=== PATIENT | female | born 1980 | race African-American/Black ===

== ENCOUNTER 2024-03-06 17:17 | Emergency (ER) | payer MEDICAID, SELFPAY ==
--- NOTE | ~2024-03-06 | CT_ITS ---
EXAMINATION: CT brain wo con DATE: 03/06/2024 19:11 INDICATION: Headache. TECHNIQUE: Computed tomography (CT) of the head was performed without intravenous contrast. The mA wa s adjusted according to patient size. Iterative reconstruction technique was employed. The dose-lengt h product was 605.33 mGy-cm. COMPARISON: None FINDINGS: There is no intracranial hemorrhage, acute infarction, or abnormal intracranial mass lesion . The ventricles are normal in size. The orbits are normal. The mastoid air cells are normal. The par anasal sinuses are clear. IMPRESSION: 1. Normal brain. Reviewed, dictated and finalized at location A. FILLER IMPRESSION: 1. Normal brain.
[2024-03-06 17:24] VITALS: BP 150/78; PULSE 77; RESP 16; TEMP 36.4; O2SAT 100
--- NOTE | 2024-03-06 18:58 | ED_ITS ---
HPI - Recheck/Abnormal Lab/Rx General Chief Complaint: Recheck/Abnormal Lab/Rx Stated Complaint: HTN, h/a Time Seen by Provider: 03/06/24 19:29 Focused HPI: This is a 43-year-old female who presents to the ED for chief complaint of headache ongoing for the past couple of weeks. She was seen by her doctor for a physical today and told to come to the ER due to high blood pressure. She states that she was not told the number but was told to go straight to the ER. States that he has not been taking anything for her headaches. She does state that she has history of breast cancer and has been in remission. Denies any other medical problems currently. Denies fevers, chills, neck pain, neck stiffness, numbness, weakness, syncope or head injury. does endorse history of migraines in the past GENERAL: Well-appearing, well-nourished, and in no acute distress. HEAD: Normocephalic, atraumatic. CHEST: Clear to auscultation. No respiratory distress. HEART: Regular rate and rhythm. NEURO: Alert and oriented x3. Patient screened in triage and initial orders placed. Additional care and disposition to be based upon diagnostic testing and treatment. Source: patient Mode of arrival: ambulatory Limitations: no limitations Related Data Allergies Allergy/AdvReac Type Severity Reaction Status Date / Time No Known Allergies Allergy Verified 03/06/24 17:19 Review of Systems Review of Systems: All systems as dictated in HPI Exam Narrative: GENERAL: Well-appearing, well-nourished, and in no acute distress. HEAD: Normocephalic, atraumatic. EYES: PERRLA and EOMI. ENT: Nares clear, no rhinorrhea or epistaxis. Mucous membranes moist. Oropharynx without tonsillar hypertrophy exudate or other lesions. NECK: Supple. No adenopathy or masses. CHEST: No respiratory distress. Clear to auscultation. No wheezes rales or rhonchi HEART: Regular rate and rhythm. No murmur heard. Normal peripheral pulses. ABDOMEN: Soft, nontender, nondistended, normal active bowel sounds. MSK: Normal range of motion. No edema. SKIN: Warm, dry, no rash. NEURO: Alert and oriented x4. No focal deficits. PSYCH: Normal mood and affect. Course Vital Signs Vital signs: Vital Signs Temperature 97.6 F 03/06/24 17:24 Pulse Rate 77 03/06/24 17:24 Respiratory Rate 16 03/06/24 17:24 Blood Pressure 150/78 H 03/06/24 17:24 Pulse Oximetry 100 03/06/24 17:24 Oxygen Delivery Room Air 03/06/24 17:24 Temperature 97.6 F 03/06/24 17:24 Pulse Rate 77 03/06/24 17:24 Respiratory Rate 16 03/06/24 17:24 Blood Pressure 150/78 H 03/06/24 17:24 Pulse Oximetry 100 03/06/24 17:24 Oxygen Delivery Room Air 03/06/24 17:24 MDM - Recheck/Abnormal Lab/Rx MDM Narrative Medical decision making narrative: This is a 43-year-old female who presents to the ED after being told by her primary care office to come for elevated blood pressures. Patient does note that she has had headaches but no signs of emergent hypertension. CT brain shows no acute findings.' Offered further workup and headache treatment for the patient here, however she is declining. States that she is feeling well and feels ready to go home. Presentation consistent with headache and asymptomatic hypertension. Patient will be discharged in stable condition. Supportive measures discussed and return precautions given. Patient is understanding and agreeable with plan for discharge with PCP follow-up. Discharge Plan Discharge Clinical Impression: Asymptomatic hypertension Patient Disposition: Home, Self-Care Condition: Stable Instructions: Antibiotic Form Additional Instructions: Your exam and imaging today are reassuring overall. Please make sure they are taking Tylenol 500 mg and ibuprofen 600 mg every 6 hours as needed for headaches. Follow-up with PCP closely regarding blood pressures and headaches. If you have any new or worsening symptoms please return to the ER for further evaluation. Patient Language: Trin[place] Follow-up/Referrals: PHYSICIAN NOT ON STAFF,NONSTAFF [Non-Staff] - Time of Disposition: 19:35
--- NOTE | 2024-03-06 19:44 | PC.NURSE ---
disposition paperwork handed to this rn by memo ann. No last set of vs obtained, and this rn did not observe pt to do assessment.
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
--- OUTSIDE RECORDS SUMMARY | 2024-03-06 19:46 | XMS_ITS | Referral Summary ---
Author Organization [facility] al Address [address] [place] [address] Care Team Providers Care Recruitment Coordinator Name Role Phone No, Physician Primary Care Provider [phone] Taina Cabral MD PhD Unavaila ble Jayla Hernandez MD Unavailable [phone] Encounters Date Type Department Care Team Description 02/08/2024 5:01 PM UPHOLSTERER HELPER - 02/08/2024 9:51 PM [facility] Emergency [facility] Emergency Department [address] [place] [address] Nausea and vomiting, unspecified vomiting type (Primary Dx); Acute cystitis with hematuria Discharge Disposition: Discharge to home or self care 02/07/2024 5:33 PM UPHOLSTERER HELPER - 02/07/2024 7:05 PM [facility] Emergency [facility] Emergency Department [address] [place] [address] Raymon Santana MD Vomiting and diarrhea (Primary Dx) Discharge Disposition: Discharge to home or self care 01/11/2024 2:00 PM [facility] Office Visit [facility] [address] [place] [address] Malignant neoplasm of female breast, unspecified estrogen receptor status, unspecified laterality, unspecified site of breast (HCC) (Primary Dx); Acute bilateral low back pain without sciatica; Zqlrmet-Kemqv-Zfarl disease from Last 3 Months Allergies No known active allergies Medications vitamin ferrous fumarate-folic () 28 mg iron- 800 mcg tabletIndications: Supervision of high-risk , first trimester Take 1 tablet by mouth daily 30 tablet 11 02/13/19 23 Active Additional Information Patient not taking.Reported on 02/28/2022 meloxicam (MOBIC) 15 mg tablet Take 1 tablet (15 mg total) by mouth daily 30 tablet 11/26/19 24 025 Active cyclobenzaprine (FLEXERIL) 10 mg tablet Take 1 tablet (10 mg total) by mouth 2 (two) times a day as needed for muscle spasms 20 tablet 11/26/19 24 Active lidocaine (LIDODERM) 5 % Place 1 patch on the skin daily Remove & discard patch within 12 hours or as directed by MD. 15 patch 11/26/19 24 Active ondansetron (ZOFRAN) 4 mg tablet Take 1 tablet (4 mg total) by mouth every 6 (six) hours 12 tablet 02/06/19 25 Active nystatin, bulk, 100 million unit powder 1 application 2 (two) times a day Apply to skin under left breast 1 each 3 11/07/19 20 025 Discontinu ed(Therapy completed) diphenhydrAMINE-ac etaminophen (TYLENOL PM) 25-500 mg tablet Take 1 tablet by mouth daily 025 Discontinu ed(Therapy completed) baclofen (LIORESAL) 10 mg tablet Take 0.5-1 tablets (5-10 mg total) by mouth 2 (two) times a day Start with 0.5-1 tab qhs x1wk, can increase to 1 tab BID 60 tablet 11 12/03/19 21 025 Discontinu ed(Therapy completed) miSOPROStoL (CYTOTEC) 200 mcg tabletIndications: Spontaneous loss Take 4 tablets (800 mcg total) by mouth as directed for [address] 2 tablets in each cheek (all 4 total) and let dissolve for 30 minutes. After 30m, swallow or spit out the remainder of the undissolved pills. Call the clinic if you have not had any bleeding in 48 hours. 4 tablet 02/21/19 23 025 Discontinu ed(Therapy completed) ondansetron ODT (ZOFRAN-ODT) 4 mg disintegrating tabletIndications: Excessive Vomiting in Take 1 tablet (4 mg total) by mouth every 8 (eight) hours as needed for nausea or vomiting 20 tablet 02/21/19 23 025 Discontinu ed(Therapy completed) acetaminophen (TYLENOL) 500 mg tablet Take 2 tablets (1,000 mg total) by mouth every 6 (six) hours as needed for pain 30 tablet 02/21/19 23 025 Discontinu ed(Therapy completed) nitrofurantoin monohydrate (MACROBID) 100 mg capsule Take 1 capsule (100 mg total) by mouth 2 (two) times a day for 7 days 14 capsule 02/07/19 25 025 Active Problems Problem Noted Date Diagnosed Date Urinary urgency 04/21/2022 Overview (04/21/2022): We discussed that her urge urinary symptoms are likely multifactorial in nature (bladder irritants and large fibroid uterus). Discussed reduction of soda intake to see if symptoms improve. A urine culture is being sent today to rule out a UTI as a possible cause of her symptoms. 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 Her mother and 11yo son also have the condition. She does not have symptoms. She is not sure of the exact mutation or inheritance pattern but may be autosomal dominant for her family. She reports she had nerve conduction test that also supports the diagnosis. She is interested in genetic testing and meeting with genetic counselor. This will be arranged after her next visit where cfDNA and carrier screening will be collected. Neuropathy 12/02/2020 History of breast cancer 09/07/2020 Overview (01/31/2022): ONCOLOGIC HISTORY: - 02/26/2019 L breast biopsy IDC high grade ER/AK/HER2 negative, Ki67 90. LN + BRCA neg - 03/19/2019 R breast biopsy: Benign - 03/17/2019 staging scans: No evidence of metastatic disease - 03/25/2019 initiated neoadjuvant paclitaxel 80 mg/m2, carboplatin AUC 1.5 and pembrolizumab 200 mg Q 3 weeks (with Dr. Salinas) followed by AC Q 3 weeks with pembrolizumab - 10/15/2019 L breast partial mastectomy with sentinel lymph node biopsy: pCR, lymph node clip not located (not retained based on images) - adjuvant XRT She currently has DIANE and has completed treatment. She continues to follow with oncology. She does not require any additional testing for this . Abnormal findings on diagnostic imaging of breas t 09/07/2020 History of partial mastectomy of left breast 03/2020 Gait instability 11/07/2019 Decreased range of motion of left shoulder 11/06 Arthropathy associated with neurological disorde r 04/11/2019 Malignant neoplasm of upper- inner quadrant of left breast in female, estrogen receptor negative 03/11/2019 Cancer Staging:Clinical: cT2, cN2, G3, ER-, AK-, HER2- - Signed by Venessa Salinas MD on 03/11/2019 Pathologic stage from 10/20/2019:No Stage Recommended(ypT0, pN0, cM0, ER-, AK-, HER2-) - Signed by Abigail Cárdenas MD on 11/24/2019 Obesity Overview (01/31/2022): BMI: 30.4 Counseling Discussed with patient that obesity in is associated with increased risks. Women with obesity are at increased risks of spontaneous , stillbirth, macrosomia and congenital anomalies. During the antepartum period they are at increased risk of cardiac dysfunction, proteinuria, sleep apnea, GDM, and preeclampsia. During labor, women with obesity are at a higher risk for delivery, failed trial of labor, endometritis, wound complications, and venous thrombosis. Discussed with patient the recommended weight gain in , and with a BMI of 30 or greater we recommend a weight gain of 11-20lb Lastly discussed management. Would recommend early glucose screening, specialized anatomy ultrasound with serial growth assessment, and testing. Plan [] Early GTT [] Specialized anatomy ultrasound [] Serial growth ultrasounds q4 weeks starting at 24 weeks [] Anesthesia consult in third trimester Fibroid Overview (04/21/2022): -patient reports a history of heavy menses - Discussed with patient that uterine fibroids (also known as myomas or leiomyomas) are caused by benign proliferation of myometrium - ultrasound during recent with large posterior lower uterine segment submucosal uterine fibroid measuring a mean of 11.1 cm (115 mm x 119 mm x 99 mm. Mean 111.0 mm) Uterus and adnexa normal - we discussed that her heavy menses may be related to her fibroid uterus. Additionally may be contributing to her urinary symptoms. - we discussed management options for fibroids including MMY vs hysterectomy. She strongly desires to retain her uterus and would like to proceed forward with MMY. Counseled regarding open vs minimally invasive approach. She would like to have a consultation with [facility] to determine if this procedure could be performed minimally invasive. - Message sent for referral. [facility] requesting MRI prior to seeing the patient. Order placed for MRI and patient given instructions to call and schedule. Supervision of high-risk , first miguel rodriguez Overview (01/31/2022): 1st Trimester: [] Dating Criteria: L=1 [] Labs: Rh *, Ab *, CBC *, Rubella *, VZV *, HIV *, RPR *, HepBSAg *, Hep C Ab * (ordered 01/31) [] GC/CT/Trich: ordered 01/31 [] UCx: [] vitamins: taking [] Genetic Screening: desires at 12 wk [] CF/SMA carrier screening: desires at 12 wk [] Hgb electrophoresis: [] Pap: collected 01/31 [] EPDS: PNBHS referral (if indicated) [] ASA at 12 weeks [] DM screening: HgbA1c * (<5.7: no further test until 2T screen, 5.7-6.5: obtain 2h GTT, >6.5: refer to CDP) [] Feeding Preferences Survey: benefits of discussed with patient and partner 2nd Trimester: [] Anatomy ultrasound: [] CBC: [] 1hr GTT (24-28wks): [] Flu Shot (Sep-Jan): [] Tdap (27-36wks): [] Rhogam (if Rh neg): [] Childbirth classes discussed [] education (colostrum, expected breast changes, plan for RTW) and breast pump ordered [] 2nd trimester education packet 3rd Trimester: [] CBC/HIV/RPR/T&S: [] GBS: [] GC/CT/Trich (if indicated): [] Final discussion (S2S, Baby Friendly, LC Support, PP experience) [] 3rd trimester education packet Counseling [] Method of delivery: [] Bottle of CHG 4% and hand out provided @ 36wks (if planned) [] Timing of delivery: [] MOC: [] MOF: [] COVID-19 vaccine counseling [] education: completed in all 3 trimesters [] Valve Seater Operator: [] Car seat discussed [] PP depression counseling Resolved Problems Problem Noted Date Diagnosed Date Resolved Date with inconclusive viability 01/25/2022 01/31/2022 Overview (01/25/2022): Telephone Number Jeffery Calvo [phone] (home) Home [] PUL Card Given Working Diagnosis: IUP vs SAB Date presented: 01/25/22 Brief HPI: 41 y.o. at approximately 7w2d (LMP= ) presents to ED 01/16 with bleeding, BSUS 01/16 with GS/YS. Ultrasound: BSUS 01/16 with GS/YS. Formal US 01/25 with no evidence of IUP but technically challenging 2/2 large posterior fibroid. 01/25 bHCG 52674, discussed repeating bHCG in 48 hrs, however patient declined due to job. She has an appointment scheduled for 01/31. Precautions given. Rh Status: A Positive [] Rhogam Given Beta Trend: Lab Results Component Value Date HCG 72,919.0 (H) 01/25/2022 HCG 29,986.0 (H) 01/16/2022 HCG <5.0 08/15/2020 HCG 1.2 11/24/2019 PLAN Next beta due: 01/25 if downtrending, c/w SAB and to discuss next steps with patient. Contraception: NA [] Signed out with attending and audrey to remove from beta book. Attending Name: Breast pain 12/02/2020 01/31/2022 Immunizations Name Administration Dates Next Due Influenza, Trivalent, IM (MDV) 12/26/2016 Tdap 10/28/2021,03/10/2011 Social History Tobacco Use Types Packs/Day Years Used Date Smoking Tobacco: Never Smokeless Tobacco: Never Tobacco Cessation:Counseling Given: Not Answered Alcohol Use Standard Drinks/Week Comments No 0 (1 standard drink = 0.6 oz pur e alcohol) AUDIT-C Answer Date Recorded Q1: How often do you have a drink containing alc ohol? Never 12/02/2020 Average Number of Drinks Not on file 021 Frequency of Binge Drinking Not on file 11/06 Hunger Vital Sign Answer Date Recorded Within the past 12 months, y ou worried that your food would run out before you got the money to buy more. Never true 04/22/19 23 Within the past 12 months, t he food you bought just didn't last and you didn't have money to get more. Never true 04/21/2022 Personal Safety Answer Date Recorded Have you ever been in or are you currently in a harmful physical or emotional relationship or is someone making you feel afraid or unsafe? Denies 02/08/2024 Comments No Sex and Gender Information Value Date Recorded Sex Assigned at Not on file Legal Sex Female 11:41 AM UPHOLSTERER HELPER Gender Identity Not on file Sexual Orientation Not on file Last Filed Vital Signs Vital Sign Reading Time Taken Comments Blood Pressure 144/91 02/08/2024 9:00 PM UPHOLSTERER HELPER Pulse 60 02/08/2024 9:00 PM UPHOLSTERER HELPER Temperature 36.9 ??C (98.4 ??F) 02/08/2024 2:39 PM CS T Respiratory Rate 18 02/08/2024 2:39 PM UPHOLSTERER HELPER Oxygen Saturation 100% 02/08/2024 9:00 PM UPHOLSTERER HELPER Inhaled Oxygen Concentration - - Weight 83.9 kg (185 lb) 02/08/2024 2:39 PM UPHOLSTERER HELPER Height 172.7 cm (5' 8 ) 02/08/2024 2:39 PM UPHOLSTERER HELPER Body Mass Index 28.13 02/08/2024 2:39 PM UPHOLSTERER HELPER Plan of Treatment Not on file Goals Goal Patient Goal Type Associated Problems Recent Progress Patient-Stated? Author CCM Chronic Pain Care Plan Chronic Care Management No change(12/02 10:04 AM CDT) No Mercedez Livingston, RN Note: Problem: Chronic Pain Goals: 1. Minimize further functional decline 2. Maximize quality of life 3. Control pain Strategies: - Activity/exercise program recommendation - Conservative stepwise pain medicine strategy with multi-disciplinary approach - Recommend healthy lifestyle strategies and compensatory methods as needed Medical Devices Explanted Type Area Integration Developer Device Identifier Shelf Expiration Date Model / Serial / Lot [employer] [id number] Powerport Clearvue Airguard 8fr 1 Lumen Lightweight Intermediate Latex Free - [id number] Implanted:Qty: 1 on 03/12/2019 by Taina Cabral MD PhD at [facility] Explanted:Qty: 1 on 12/17/2019 at [facility] Right: Chest [employer] 05/05/2020 [id number] / / [id number] Procedures Procedure Name Priority Date/Time Associated Diagnosis Comments POCT HCG, URINE Routine 02/08/2024 8:46 PM UPHOLSTERER HELPER URINALYSIS, MICROSCOPIC ONLY STAT 02/08/2024 7:38 PM UPHOLSTERER HELPER URINE CULTURE STAT 02/08/2024 7:38 PM UPHOLSTERER HELPER URINALYSIS AND REFLEX TO MICROSCOPIC AND CULTURE STAT 02/08/2024 7:38 PM UPHOLSTERER HELPER EGFR STAT 02/08/2024 6:00 PM UPHOLSTERER HELPER DIFFERENTIAL AUTO STAT 02/08/2024 6:0 0 PM UPHOLSTERER HELPER LIPASE STAT 02/08/2024 6:00 PM UPHOLSTERER HELPER COMPREHENSIVE METABOLIC PANEL STAT 02/08/2024 6:00 PM UPHOLSTERER HELPER CBC WITH AUTO DIFFERENTIAL STAT 02/08/2024 6:00 PM UPHOLSTERER HELPER INFLUENZA A/B, RSV, AND COVID-19 PCR Routine 02/08/2024 2:47 PM UPHOLSTERER HELPER ECG 12-LEAD STAT 02/07/2024 3:01 PM UPHOLSTERER HELPER EGFR STAT 02/07/2024 2:52 PM UPHOLSTERER HELPER DIFFERENTIAL AUTO STAT 02/07/2024 2:5 2 PM UPHOLSTERER HELPER LIPASE STAT 02/07/2024 2:52 PM UPHOLSTERER HELPER COMPREHENSIVE METABOLIC PANEL STAT 02/07/2024 2:52 PM UPHOLSTERER HELPER CBC WITH AUTO DIFFERENTIAL STAT 02/07/2024 2:52 PM UPHOLSTERER HELPER HEPATITIS C ANTIBODY Routine 01/31/2022 12:56 PM UPHOLSTERER HELPER Supervision of high-risk , first trimester PAP AND HIGH RISK HPV, REFLEX TO GENOTYPING Routine 01/31/2022 12:01 PM UPHOLSTERER HELPER Supervision of high-risk , first trimester DIAGNOSTIC MAMMOGRAM BILATERAL W JIM Schedule Routine, Read Routine (OP Routine) 03/02/2020 2:31 PM UPHOLSTERER HELPER Malignant neoplasm of upper-inner quadrant of left breast in female, estrogen receptor negative (CMS/HCC) from Last 3 Months or Most Recently Relevant to Health Maintenance Results * POCT hCG, urine (02/08/2024 8:46 PM UPHOLSTERER HELPER) Pathologist [facility] HCG, ur, POC Negative Negative Lot Number [id number] QC Backgroud Clear Acceptable QC Control Line Acceptable Urine 02/08/2024 8:46 PM UPHOLSTERER HELPER Meaghan Michel NP POINT OF CARE TEST GIANCARLO MILLER Final Result * (ABNORMAL) Urinalysis reflex to microscopic and culture Urine (02/08/2024 7:38 PM UPHOLSTERER HELPER) Color, ur Yellow Yellow Comment:[facility] : [facility] [address], [place] [address] Clarity, ur Clear Clear [place]ON Comment:Testing performed by : [facility], [place] [address] Specific gravity, ur 1.028 1.003 - 1.030 ST[place]ON Comment:Testing performed by : [facility], [place] [address] pH, urine 7.0 STANTON Comment: Interpretive Data ? Urine pH is affected by diet, medications, systemic acid-base disturbances, and renal tubular function. ??pH may affect urinary stone formation. ??For example, urine pH below 6.0 may help reduce the tendency for calcium phosphate stones and pH greater than 6.0 may reduce the tendency for uric acid stone formation. Source: [facility] [employer] Current Interpretive Data was last revised on 2017 Testing performed by: [facility], [place] [address] Protein, ur ql Trace Negative CERNER Comment:Testing performed by : [facility], [place] [address] Glucose, ur ql Negative Negative CERNER Comment:Testing performed by : [facility], [place] [address] Ketones, ur 2+(A) Negative CERNER Comment:Testing performed by : [facility], [place] [address] Bilirubin, ur Negative Negative CERNER Comment:Testing performed by : [facility] [address] [address] Blood, ur 2+(A) Negative CERNER Comment:Testing performed by : [facility], [place] [address] Urobilinogen, ur <2.0 <2.0 mg/dL ST[place]ON Comment:Testing performed by : [facility], [place] [address] Nitrite, ur Negative Negative CERNER Comment:Testing performed by : [facility], [place] [address] Leukocyte esterase, ur 2+(A) Negative CERNER Comment:Testing performed by : [facility] [address], [place] [address] UA reflex comment Reflex to microscopic UA will be performed. STANTON Comment:Testing performed by : [facility] [address], [place] [address] Urine 02/08/2024 7:38 PM UPHOLSTERER HELPER 02/08/2024 7:54 PM UPHOLSTERER HELPER Meaghan Michel [facility] MICROBIOLOGY - GENE RAL ORDERABLES Final Result STANTON [address] Department [place] [address] * (ABNORMAL) Urinalysis, microscopic only (02/08/2024 7:38 PM UPHOLSTERER HELPER) WBC, ur 11-20(A) 0 - 5 /HPF Comment:Testing performed by : [facility], [address], [place] [address] RBC, ur 21-50(A) 0 - 2 /HPF ST[place]ON Comment:Testing performed by : [facility], [address], [place] [address] Epithelial cells, squamous, ur 1-5 0 - 5 /HPF ST[place]ON Comment:Testing performed by : [facility], [address], [place] [address] Mucous, ur Present(A) STANTON Comment:Testing performed by : [facility], [address], [place] [address] Culture Reflex Comment Reflex to urine culture will be performed. STANTON Comment:Testing performed by : [facility], [address], [place], [place] [address] Urine 02/08/2024 7:38 PM UPHOLSTERER HELPER 02/08/2024 7:54 PM UPHOLSTERER HELPER Meaghan Michel [facility] URINE ORDERABLES nal Result ST[place] URBAN [address] Department [place] [address] * Urine culture Urine (02/08/2024 7:38 PM UPHOLSTERER HELPER) Report Final Report: Less than 100,000 colonies/mL (clinically insignificant growth based on current clinical standards) Comment:Testing performed by : [facility], [address] [place]., [address] Organism (CLINICALLY INSIGNIFICANT GROWTH ST[place]ON Urine 02/08/2024 7:38 PM UPHOLSTERER HELPER 02/08/2024 11:56 PM UPHOLSTERER HELPER Narrative STANTON - 02/10/2024 8:07 AM UPHOLSTERER HELPER Urine culture reflexed based upon urinalysis results. Testing performed by [facility] ([phone]) [place] [facility] MICROBIOLOGY - GENE RAL ORDERABLES Final Result Performing Organization Address [facility] Co de Phone Number ST[place]ON URBAN [address] Department [place] [address] * eGFR (02/08/2024 6:00 PM UPHOLSTERER HELPER) eGFR >90 >=60 mL/min/1. 73 m2 Comment: Interpretive Data Reference Interval Normal ?>/= 90 mL/min/1.73m2 Mildly decreased* ? 60 - 89 mL/min/1.73m2 Mildly to moderately decreased ?45 - 59 mL/min/1.73m2 Moderately to severely decreased ??30 - 44 mL/min/1.73m2 Severely decreased ?15 - 29 mL/min/1.73m2 Kidney Failure ?< 15 ??mL/min/1.73m2 *Relative to young adult level Estimated glomerular filtration rate is determined by the 2020 CKD-EPI equation recommended by the National Kidney Foundation (A Unifying Approach to GFR Estimation: Recommendations of the NKF-ASK Task Force on Reassessing the Inclusion of Race in Diagnosing Kidney Disease, JASN 2020). The CKD-EPI equation should not be used for patients with unstable renal function and has not been validated in children and those over 70. Current interpretive data was last reviewed 2020. Testing performed by: [facility], [address], [place] [address] Blood 02/08/2024 6:00 PM UPHOLSTERER HELPER 02/08/2024 6:12 PM UPHOLSTERER HELPER Meaghan [place] [facility] BLOOD ORDERABLES Fi nal Result Performing Organization Address [facility] Co de Phone Number ST[place]ON URBAN [address] [address] Department of Laboratories [place] [phone] * Differential, auto (02/08/2024 6:00 PM UPHOLSTERER HELPER) Neutrophil abs 2.0 1.5 - 6.5 K/cumm Comment:Testing performed by : [facility], [facility] [place] [address] Imm gran abs 0.0 0.0 - 0.1 K/cumm CERNER CH Comment:Testing performed by : [address] [place] [address] Lymphocyte abs 1.1 0.8 - 3.3 K/cumm CERNER CH Comment:Testing performed by : [address] [place] [address] Monocyte abs 0.6 0.2 - 0.8 K/cumm CERNER CH Comment:Testing performed by : [address] [place] [address] Eosinophil abs 0.0 0.0 - 0.5 K/cumm CERNER CH Comment:Testing performed by : [address] [place] [address] Basophil abs 0.0 0.0 - 0.1 K/cumm CERNER CH Comment:Testing performed by : [address] [place] [address] Neutrophil pct 53.1 % CERNER CH Comment: Interpretive Data Percent cell count reference ranges are not reported, since discordance with absolute values may lead to misinterpretation of CBC data. Current Interpretive Data was last revised on 2017. Testing performed by: [address] [place] [address] Imm gran pct 0.3 % CERNER CH Comment: Interpretive Data Percent cell count reference ranges are not reported, since discordance with absolute values may lead to misinterpretation of CBC data. Current Interpretive Data was last revised on 2017. Testing performed by: [address] [place] [address] Lymphocyte pct 29.7 % CERNER CH Comment: Interpretive Data Percent cell count reference ranges are not reported, since discordance with absolute values may lead to misinterpretation of CBC data. Current Interpretive Data was last revised on 2017. Testing performed by: [address] [place] [address] Monocyte pct 15.8 % STANTON Comment: Interpretive Data Percent cell count reference ranges are not reported, since discordance with absolute values may lead to misinterpretation of CBC data. Current Interpretive Data was last revised on 2017. Testing performed by: [facility] [address], [place] [address] Eosinophil pct 0.8 % STANTON URBAN Comment: Interpretive Data Percent cell count reference ranges are not reported, since discordance with absolute values may lead to misinterpretation of CBC data. Current Interpretive Data was last revised on 2017. Testing performed by: [facility] [address], [place] [address] Basophil pct 0.3 % STANTON Comment: Interpretive Data Percent cell count reference ranges are not reported, since discordance with absolute values may lead to misinterpretation of CBC data. Current Interpretive Data was last revised on 2017. Testing performed by: [facility] [address], [place] [address] Blood 02/08/2024 6:00 PM UPHOLSTERER HELPER 02/08/2024 6:12 PM UPHOLSTERER HELPER Meaghan Michel [facility] BLOOD ORDERABLES Fi nal Result ST[place]ON [address] Department [place] [address] * (ABNORMAL) CBC with auto differential (02/08/2024 6:00 PM UPHOLSTERER HELPER) WBC 3.7(L) 3.8 - 9.9 K/cumm Comment:[facility] by : [facility] [address], [place] [address] Hgb 13.0 11.9 - 15.5 g/dL [facility] Comment:Testing performed by : [facility] [address], [place] [address] Hct 38.9 35.6 - 45.5 % [facility] Comment:Testing performed by : [facility], [place] [address] Plt 280 150 - 400 K/cumm [facility] Comment:Testing performed by : [facility], [place] [address] MPV 9.0(L) 9.1 - 12.3 fL [facility] Comment:Testing performed by : [facility] [place] [address] RBC 4.76 3.90 - 5.20 M/cumm [facility] CH Comment:Testing performed by : [facility], [facility] [place] [address] MCV 81.7 81.3 - 96.4 fL [facility] CH Comment:Testing performed by : [facility], [facility] [place], [place] [address] MCH 27.3 27.1 - 33.3 pg [facility]ER CH Comment:Testing performed by : [facility], [facility] [place] [address] MCHC 33.4 32.3 - 35.7 g/dL [facility] CH Comment:Testing performed by : [facility], [facility] [place], [place] [address] RDW CV 14.2 11.1 - 14.9 % [facility] CH Comment:Testing performed by : [facility] [place], [place] [address] RDW SD 41.8 35.7 - 48.1 fL [facility] CH Comment:Testing performed by : [facility], [facility] [place], [place] [address] NRBC abs 0.00 0.00 - 0.01 K/cumm [facility]ER Comment:Testing performed by : [facility], [facility] [place], [place] [address] Blood 02/08/2024 6:00 PM UPHOLSTERER HELPER 02/08/2024 6:12 PM UPHOLSTERER HELPER Meaghan Michel SHIPPING WEIGHER LAB BLOOD ORDERABLES nal Result [facility] [address] Department [place] [address] * Lipase (02/08/2024 6:00 PM UPHOLSTERER HELPER) Lipase 25 10 - 99 Units/L Comment:Testing performed by : [facility], [facility] [place] [address] Blood 02/08/2024 6:00 PM UPHOLSTERER HELPER 02/08/2024 6:12 PM UPHOLSTERER HELPER Meaghan Michel SHIPPING WEIGHER LAB BLOOD ORDERABLES Fi nal Result [facility] [address] Department [place] [address] * (ABNORMAL) Comprehensive metabolic panel (02/08/2024 6:00 PM UPHOLSTERER HELPER) Sodium 134(L) 135 - 145 mmol/L Comment:Testing performed by : [facility], [place] [address] Potassium, pl 3.9 3.3 - 4.9 mmol/L [facility] Comment:[facility] performed by : [facility], [place] [address] Chloride 99 97 - 110 mmol/L [facility] Comment:Testing performed by : [facility], [place] [address] CO2 22 22 - 32 mmol/L [facility] Comment:Testing performed by : [facility], [place] [address] Anion gap 13 2 - 15 mmol/L [facility] Comment:Testing performed by : [facility] [address], [place] [address] BUN 9 6 - 25 mg/dL [facility] Comment:Testing performed by : [facility] [address], [place] [address] Creatinine 0.42(L) 0.60 - 1.10 mg/dL [facility] Comment:Testing performed by : [facility] [address], [place] [address] Glucose 95 70 - 199 mg/dL [facility] Comment: Interpretive Data Fasting glucose >/= 126 mg/dl is diagnostic for diabetes. ?? Fasting is defined as no caloric intake for at least 8 hours. Fasting glucose between 100 mg/dl to 125 mg/dl is diagnostic of prediabetes. In a patient with classic symptoms of hyperglycemia or hyperglycemic crisis, a random glucose >/= 200 mg/dl is diagnostic for diabetes. In the absence of unequivocal hyperglycemia, results should be confirmed by repeat testing. The classification and Diagnosis of Diabetes Diabetes Care 2021; 46: S19-S40. Current interpretive data was last revised 2022. Testing performed by: [facility], [place] [address] Calcium 9.2 8.5 - 10.3 mg/dL [facility] Comment:Testing performed by : [facility] [address], [place] [address] Bilirubin, total 0.4 0.1 - 1.2 mg/dL [facility] CH Comment:Testing performed by : [facility] [address], [place] [address] Protein, pl 7.9 6.5 - 8.5 g/dL [facility] Comment:Testing performed by : [facility] [address], [place] [address] Albumin 4.2 3.5 - 5.0 g/dL [facility] CH Comment:Testing performed by : [facility], [place] [address] Alk phos 57 40 - 130 Units/L [facility] CH Comment:Testing performed by : [facility], [place] [address] ALT 9 7 - 45 Units/L [facility] CH Comment:Testing performed by : [facility], [place] [address] AST 14 10 - 45 Units/L [facility] Comment:Testing performed by : [facility], [place] [address] Blood 02/08/2024 6:00 PM UPHOLSTERER HELPER 02/08/2024 6:12 PM UPHOLSTERER HELPER Meaghan Michel SHIPPING WEIGHER LAB BLOOD ORDERABLES Fi nal Result [facility] [address] Department [place] [address] * Influenza A/B, RSV, and COVID-19 PCR Nasopharyngeal (02/08/2024 2:47 PM UPHOLSTERER HELPER) COVID-19 RNA Negative Negative Comment:Testing performed by : [facility], [place] [address] Influenza A RNA Negative Negative [facility] Comment:Testing performed by : [facility], [place] [address] Influenza B RNA Negative Negative [facility] Comment:Testing performed by : [facility], [place] [address] RSV RNA Negative Negative [facility] Comment: Interpretive data: Testing performed by [facility]. This test is performed using the Istpika Xpert Xpress CoV-2/Flu/RSV plus assay. This is a multiplex, real- time reverse transcriptase PCR assay intended for the qualitative detection of nucleic acid from SARS-CoV-2, influenza A, influenza B, and respiratory syncytial virus. This assay has been cleared by the [place] Food and Drug administration. The performance characteristics have been verified by the [facility]. ??Results must be considered in the clinical context, and a negative result does not rule out infection. Interpretive Data last revised 2023 Testing performed by: [facility], [address], [place] [address] Nasopharyngeal 02/08/2024 2: 47 PM UPHOLSTERER HELPER 02/08/2024 2:50 PM UPHOLSTERER HELPER Narrative [facility] - 02/08/2024 3:27 PM UPHOLSTERER HELPER Is the Patient experiencing symptoms consistent with COVID?->Yes Christina Redd MD LAB MICROBIOLOGY - GEN ERAL ORDERABLES Final Result [facility] [address] Department [place] [address] * ECG 12-LEAD (02/07/2024 3:01 PM UPHOLSTERER HELPER) Narrative [facility] - 02/07/2024 3:01 PM UPHOLSTERER HELPER Abdi Reed MD ? 02/07/2024 ??3:01 PM ECG 12 lead Date/Time: 02/07/2024 3:01 PM Performed by: Abdi Reed MD Authorized by: Brian Brasher MD ?? Comments: ?? Sinus bradycardia, rate 59, borderline left axis deviation. ??AK, QRS, QTC intervals are not prolonged. ??No acute T-wave or ST changes when compared to prior EKG from 02/26/2019 Procedure Note Abdi Reed MD - 02/07/2024 3:01 PM CST Procedure ECG 12 lead Date/Time: 02/07/2024 3:01 PM Performed by: Abdi Reed MD Authorized by: Brian Brasher MD Comments: Sinus bradycardia, rate 59, borderline left axis deviation. AK, QRS,QTC intervals are not prolonged. No acute T-wave or ST changes whencompared to prior EKG from 02/26/2019 Abdi Reed MD 02/07/24 1501 us Raymon Santana MD ECG ORDERABLES Final Res ult Performing Organization Address [facility] Co de Phone Number MUSE [facility] * eGFR (02/07/2024 2:52 PM UPHOLSTERER HELPER) Pathologist [facility] eGFR >90 >=60 mL/min/1. 73 m2 Comment: Interpretive Data Reference Interval Normal ?>/= 90 mL/min/1.73m2 Mildly decreased* ? 60 - 89 mL/min/1.73m2 Mildly to moderately decreased ?45 - 59 mL/min/1.73m2 Moderately to severely decreased ??30 - 44 mL/min/1.73m2 Severely decreased ?15 - 29 mL/min/1.73m2 Kidney Failure ?< 15 ??mL/min/1.73m2 *Relative to young adult level Estimated glomerular filtration rate is determined by the 2020 CKD-EPI equation recommended by the National Kidney Foundation (A Unifying Approach to GFR Estimation: Recommendations of the NKF-ASK Task Force on Reassessing the Inclusion of Race in Diagnosing Kidney Disease, JASN 2020). The CKD-EPI equation should not be used for patients with unstable renal function and has not been validated in children and those over 70. Current interpretive data was last reviewed 2020. Blood 02/07/2024 2:52 PM UPHOLSTERER HELPER 02/07/2024 3:22 PM UPHOLSTERER HELPER us Yumiko Brasher MD LAB BLOOD ORDERABLES Final Result [facility] Department [place] [address] * Differential, auto (02/07/2024 2:52 PM UPHOLSTERER HELPER) Neutrophil abs 1.8 1.5 - 6.5 K/cumm Imm gran abs 0.0 0.0 - 0.1 K/cumm [facility] Lymphocyte abs 1.0 0.8 - 3.3 K/cumm [facility] Monocyte abs 0.5 0.2 - 0.8 K/cumm C[facility] Eosinophil abs 0.0 0.0 - 0.5 K/cumm [facility] Basophil abs 0.0 0.0 - 0.1 K/cumm [facility] Neutrophil pct 54.3 % [facility] Comment: Interpretive Data Percent cell count reference ranges are not reported, since discordance with absolute values may lead to misinterpretation of CBC data. Current Interpretive Data was last revised on 2017. Imm gran pct 0.6 % [facility] Comment: Interpretive Data Percent cell count reference ranges are not reported, since discordance with absolute values may lead to misinterpretation of CBC data. Current Interpretive Data was last revised on 2017. Lymphocyte pct 29.0 % [facility] Comment: Interpretive Data Percent cell count reference ranges are not reported, since discordance with absolute values may lead to misinterpretation of CBC data. Current Interpretive Data was last revised on 2017. Monocyte pct 14.6 % [facility] Comment: Interpretive Data Percent cell count reference ranges are not reported, since discordance with absolute values may lead to misinterpretation of CBC data. Current Interpretive Data was last revised on 2017. Eosinophil pct 1.2 % [facility] Comment: Interpretive Data Percent cell count reference ranges are not reported, since discordance with absolute values may lead to misinterpretation of CBC data. Current Interpretive Data was last revised on 2017. Basophil pct 0.3 % [facility] Comment: Interpretive Data Percent cell count reference ranges are not reported, since discordance with absolute values may lead to misinterpretation of CBC data. Current Interpretive Data was last revised on 2017. Blood 02/07/2024 2:52 PM UPHOLSTERER HELPER 02/07/2024 3:21 PM UPHOLSTERER HELPER Yumiko Brasher MD LAB BLOOD ORDERABLES Final Result Performing Organization Address [facility] Co de Phone Number [facility] Department [place] [address] * (ABNORMAL) CBC with auto differential (02/07/2024 2:52 PM UPHOLSTERER HELPER) Pathologist [facility] WBC 3.3(L) 3.8 - 9.9 K/cumm Hgb 13.2 11.9 - 15.5 g/dL [facility] Hct 40.2 35.6 - 45.5 % [facility] Plt 283 150 - 400 K/cumm [facility] MPV 9.6 9.1 - 12.3 fL [facility] RBC 4.91 3.90 - 5.20 M/cumm [facility] MCV 81.9 81.3 - 96.4 fL [facility] MCH 26.9(L) 27.1 - 33.3 pg [facility] MCHC 32.8 32.3 - 35.7 g/dL [facility] RDW CV 14.4 11.1 - 14.9 % [facility] RDW SD 42.6 35.7 - 48.1 fL [facility] NRBC abs 0.00 0.00 - 0.01 K/cumm [facility] Blood (Blood, Venous) 02/07/2024 2:52 PM UPHOLSTERER HELPER 02/07/2024 3:21 PM UPHOLSTERER HELPER Yumiko Brasher MD LAB BLOOD ORDERABLES Final Result [facility] Department [place] [address] * Lipase (02/07/2024 2:52 PM UPHOLSTERER HELPER) Pathologist [facility] Lipase 18 10 - 99 Units/L Blood (Blood, Venous) 02/07/2024 2:52 PM UPHOLSTERER HELPER 02/07/2024 3:22 PM UPHOLSTERER HELPER us Yumiko Brasher MD LAB BLOOD ORDERABLES Final Result [facility] Department [place] [address] * (ABNORMAL) Comprehensive metabolic panel (02/07/2024 2:52 PM UPHOLSTERER HELPER) Sodium 138 135 - 145 mmol/L Potassium, pl 4.2 3.3 - 4.9 mmol/L [facility] Chloride 101 97 - 110 mmol/L [facility] CO2 23 22 - 32 mmol/L [facility] Anion gap 14 2 - 15 mmol/L [facility] BUN 7 6 - 25 mg/dL [facility] Creatinine 0.50(L) 0.60 - 1.10 mg/dL [facility] Glucose 91 70 - 199 mg/dL [facility] Comment: Interpretive Data Fasting glucose >/= 126 mg/dl is diagnostic for diabetes. ?? Fasting is defined as no caloric intake for at least 8 hours. Fasting glucose between 100 mg/dl to 125 mg/dl is diagnostic of prediabetes. In a patient with classic symptoms of hyperglycemia or hyperglycemic crisis, a random glucose >/= 200 mg/dl is diagnostic for diabetes. In the absence of unequivocal hyperglycemia, results should be confirmed by repeat testing. The classification and Diagnosis of Diabetes Diabetes Care 2021; 46: S19-S40. Current interpretive data was last revised 2022. Calcium 9.5 8.5 - 10.3 mg/dL [facility] Bilirubin, total 0.3 0.1 - 1.2 mg/dL [facility] Protein, pl 7.9 6.5 - 8.5 g/dL [facility] Albumin 4.2 3.5 - 5.0 g/dL [facility] Alk phos 62 40 - 130 Units/L [facility] ALT 13 7 - 45 Units/L [facility] AST 20 10 - 45 Units/L [facility] Blood 02/07/2024 2:52 PM UPHOLSTERER HELPER 02/07/2024 3:22 PM UPHOLSTERER HELPER Yumiko Brasher MD LAB BLOOD ORDERABLES Final Result Performing Organization Address City/[facility]/ZIP Co de Phone Number [facility] Department [place] [address] * Hepatitis C antibody (01/31/2022 12:56 PM UPHOLSTERER HELPER) Hep C Ab Nonreactive Nonreactive [facility] Comment:Antibodies to HCV no t detected. Does NOT exclude the possibility of recent exposure to HCV. Current interpretive data was last revised on 21 Blood 01/31/2022 12:5 6 PM UPHOLSTERER HELPER 01/31/2022 1:29 PM UPHOLSTERER HELPER Gladis Reyes MD LAB MICROBIOLOGY - GENERAL ORDERABLES Final Result Performing Organization Address [facility] Co de Phone Number [facility] Department [place] [address] * Pap and High Risk HPV, reflex to Genotyping (01/31/2022 12:01 PM UPHOLSTERER HELPER) Thin prep (Pap test) 01/31/2022 12:01 PM UPHOLSTERER HELPER 01/31/2022 1:36 PM UPHOLSTERER HELPER Narrative PATHOLOGY [facility] - 02/07/2022 12:18 PM UPHOLSTERER HELPER EPIC results best viewed via link to PDF [facility] [place] [address] Note to Patients: This report may contain a detailed description of human tissue sent by a health care provider to the laboratory for pathologic evaluation. The content of this report is essential for diagnosis and may provide important critical findings. This information may be unfamiliar to patients to review without a medical professional present. It is advised that the patient review this report in the presence of a health care provider who can answer questions and explain the details. CYTOPATHOLOGY REPORT FINAL Patient Name: ??ANGELLA DUDLEY Gender: ??F : ??1980 (Age: 41) Address: ??[address], [place], [place] ??[address] Hospital #: ??[id number] Service: ??UNKNOWN Location: ?? Patient Type: ??[facility] SPECIMEN Taken: ??01/31/2022 Received: ??01/31/2022 Accessioned: ??01/31/2022 Reported: ??02/07/2022 Physician(s): ??Gladis Reyes M.D. ?? FINAL INTERPRETATION SOURCE OF SPECIMEN: ? Liquid based Thin Prep pap with HPV STATEMENT OF ADEQUACY: ?- Satisfactory for evaluation ?- Endocervical cells/transformation zone sample absent GENERAL CATEGORY: ?- Negative for squamous intraepithelial lesion or malignancy DESCRIPTION: ?- Shift in homar suggestive of bacterial vaginosis Comments HPV Result: ??NEGATIVE for high risk types of Human Papilloma Virus (HPV) RNA This probe detects the presence of HPV types: 16, 18, 31, 33, 35, 39, 45, 51, 52, 56, 58, 59, 66 and 68. ??This HPV test was performed at [facility] in [place], [place] utilizing the Gen-Probe Aptima assay. /02/07/2022 12:18 RENETTA Martel(ASCP) Report Electronically Reviewed and Signed Out By RENETTA Martel(ASCP) 02/07/2022 12:18:19 Cervicovaginal Cytology (Pap Test) Disclaimer: The Pap test is a screening test used to detect cervical cancer and its precursors; it is not a diagnostic procedure. False negative and false positive results do occur. Pap test results should be interpreted in the context of pertinent clinical information and biopsy results as indicated. Gross Description A. ??Liquid based Thin Prep pap with HPV: ??Cervical/vaginal - Screening ThinPrep ?? Clinical Diagnosis and History Last Menstrual Period: Not Provided. ICD-9 code O09.91 per requisition. The HPV test was performed by [facility], [address] [place] [address], [place] [id number]. Report Images and scanned documents, if included only viewable in PDF version The performance characteristics of some immunohistochemical stains, in-situ hybridization and fluorescence in-situ hybridization tests and immunophenotyping by flow cytometry cited in this report (if any) were determined by the Surgical Pathology Department at [facility] as part of an ongoing quality engineering manager program and in compliance with federally mandated regulations drawn from the Clinical Laboratory Improvement Act of 1988 (CLIA '88). ??Some of these tests rely on the use of analyte specific reagents and are subject to specific labeling requirements by the US Food and Drug Administration. ??Such diagnostic tests may only be performed in a facility that is certified by the Department of Health and Human Services as a high complexity laboratory under CLIA '88. ??The FDA has determined that such clearance or approval is not necessary. ??This test is used for clinical purposes. ??It should not be regarded as investigational or for research. ??Nevertheless, federal rules concerning the medical use of analyte specific reagents require that the following disclaimer be attached to the report: This test was developed and its performance characteristics determined by the Surgical Pathology Department of [facility]. ??It has not been cleared or approved by the U. S. Food and Drug Administration. Gladis Reyes MD LAB CYTOLOGY ORDERABLES [facility] Result PATHOLOGY [facility] 3rd Floor [place], [place] [phone] * Diagnostic Mammogram Bilateral W Jim (03/02/2020 2:31 PM UPHOLSTERER HELPER) Anatomical Region Laterality Modality Breast Bilateral Mammography 03/02/2020 2:52 PM UPHOLSTERER HELPER Impressions 03/02/2020 2:58 PM UPHOLSTERER HELPER No evidence of malignancy in either breast. OVERALL FINAL ASSESSMENT: BI-RADS Category 2: Benign. Annual diagnostic mammography is recommended. Electronically signed by: Brandyn Stevens 03/02/2020 2:58 PM UPHOLSTERER HELPER EXAMINATION: BILATERAL DIGITAL DIAGNOSTIC MAMMOGRAM INCLUDING CAD AND BILATERAL DIGITAL BREAST TOMOSYNTHESIS HISTORY: 39-year-old female with history of left breast cancer treated with breast conservation therapy several months ago. The previously biopsied left axillary node was not removed at time of surgery. COMPARISON: CT chest on 11/19/2019, multiple prior mammograms, most recently specimen radiographs on 10/15/2019. TECHNIQUE: ??Full field digital mammographic views of BOTH breasts were performed, including computer aided detection (CAD) and BILATERAL digital breast tomosynthesis (DBT). BREAST PARENCHYMAL COMPOSITION: There are scattered areas of fibroglandular density. MAMMOGRAM FINDINGS: There are new post-treatment changes in the left breast. There is no suspicious mass, distortion, or calcification in either breast. There has been no significant interval change in the right breast from the previous study. ??Clip from left axillary node biopsy is not visualized on these images due to its deep location, but was seen on the CT from 11/19/2019. Abigail Cárdenas MD IMG MAMMO PROCEDURES Final Result from Last 3 Months or Most Recently Relevant to Health Maintenance Insurance [place] [facility] Care Teams Recruitment Coordinator Relationship Specialty Start Date End Date No, Physician PCP - General 03/03/19 Taina Cabral MD PhD Surgeon Surgical Oncology 01/16/20 Jayla Hernandez MD [address] [place] [address] Radiation Oncologist Radiation Oncology 02/15/21
--- OUTSIDE RECORDS SUMMARY | 2024-03-06 19:46 | XMS_ITS | Encounter Summary ---
Author Organization [facility] Healthcare Address [address] [place] [address] Care Team Providers Care Pedicab Driver Name Role Phone No, Physician Primary Care Provider [phone] Gregory Watts MD PhD Unavailable [phone] Abigail Cárdenas MD Unavailable [phone] Taina Cabral MD PhD Unavaila ble Jayla Hernandez MD Unavailable [phone] Encounter Details Date Type Department Care Team (Late st Contact Info) Description 01/06/2020 Telephone Rehabilitation Services at [address] [address] Lul Daly Social History Tobacco Use Types Packs/Day Years Used Date Smoking Tobacco: Never Smokeless Tobacco: Never Alcohol Use Standard Drinks/Week Comments No 0 (1 standard drink = 0.6 oz pur e alcohol) Comments No Sex and Gender Information Value Date Recorded Sex Assigned at Not on file Legal Sex Female 11:41 AM FORM MAKER PLASTER Gender Identity Not on file Sexual Orientation Not on file documented as of this encounter Plan of Treatment Not on file documented as of this encounter Visit Diagnoses Not on filedocumented in this encounter Additional Health Concerns Infection Onset Date Last Indicated Resolved Time COVID: Suspected 02/08/2024 02/08/2024 02/08/2024 3:28 PM FORM MAKER PLASTER documented as of this encounter Care Teams Pedicab Driver Relationship Specialty Start Date End Date No, Physician PCP - General 03/03/19 Gregory Watts MD PhD Medical Oncologist Medical Oncology 05/02/19 01/05/21 Abigail Cárdenas MD Radiation Oncologist Radiation Oncology 11/07/19 Taina Cabral MD PhD Surgeon Surgical Oncology 01/16/20 Jayla Hernandez MD [facility] [place] [address] Radiation Oncologist Radiation Oncology 02/15/21 documented as of this encounter
--- OUTSIDE RECORDS SUMMARY | 2024-03-06 19:46 | XMS_ITS | Encounter Summary ---
Author Organization [facility] Healthcare Address [address] [place] [address] Care Team Providers Care Hand Baseball Sewer Name Role Phone No, Physician Primary Care Provider Gregory Watts MD PhD Unavailable [phone] Abigail Cárdenas MD Unavailable [phone] Taina Cabral MD PhD Unavaila ble Jayla Hernandez MD Unavailable [phone] Encounter Details Date Type Department Care Team (Late st Contact Info) Description 12/16/2019 Telephone [facility] at [address] [address] Sonya Bush, PT Social History Tobacco Use Types Packs/Day Years Used Date Smoking Tobacco: Never Smokeless Tobacco: Never Alcohol Use Standard Drinks/Week Comments No 0 (1 standard drink = 0.6 oz pur e alcohol) Comments No Sex and Gender Information Value Date Recorded Sex Assigned at Not on file Legal Sex Female 11:41 AM [employer]ET[employer] SPECIALIST Gender Identity Not on file Sexual Orientation Not on file documented as of this encounter Plan of Treatment Not on file documented as of this encounter Visit Diagnoses Not on filedocumented in this encounter Additional Health Concerns Infection Onset Date Last Indicated Resolved Time COVID: Suspected 02/08/2024 02/08/2024 02/08/2024 3:28 PM [employer]IST documented as of this encounter Care Teams Hand Baseball Sewer Relationship Specialty Start Date End Date No, Physician PCP - General 03/03/19 Gregory Watts MD PhD Medical Oncologist Medical Oncology 05/02/19 01/05/21 Abigail Cárdenas MD Radiation Oncologist Radiation Oncology 11/07/19 Taina Cabral MD PhD Surgeon Surgical Oncology 01/16/20 Jalya Hernandez MD [address] [facility] [place] [address] Radiation Oncologist Radiation Oncology 02/15/21 documented as of this encounter
--- OUTSIDE RECORDS SUMMARY | 2024-03-06 19:46 | XMS_ITS ---
Author Organization [facility] Address [address] [facility] [place] [address] Care Team Providers Care Director Athletic Name Role Phone No, Physician Primary Care Provider [phone] Taina Cabral MD PhD Unavaila ble Jayla Hernandez MD Unavailable [phone] Active Problems Problem Noted Date Diagnosed Date Urinary urgency 04/21/2022 Overview (04/21/2022): We discussed that her urge urinary symptoms are likely multifactorial in nature (bladder irritants and large fibroid uterus). Discussed reduction of soda intake to see if symptoms improve. A urine culture is being sent today to rule out a UTI as a possible cause of her symptoms. Will also refer to [facility] for possible lsc [facility] Ckslybs-Xrpsw-Kiwcp disease 12/02/2020 Overview (01/31/2022): She reports she [...] 02/26/2019 L breast biopsy [facility] high grade ER/CA/HER2 negative, Ki67 90. LN + BRCA neg [...] 03/11/2019 Cancer Staging:Clinical: cT2, cN2, G3, ER-, CA-, HER2- - Signed by Venessa Salinas MD on 03/11/2019 Pathologic stage from 10/20/2019:No Stage Recommended(ypT0, pN0, cM0, ER-, CA-, HER2-) - Signed by Abigail Cárdenas MD [...] would like to have a consultation with [facility] to determine if this procedure could be performed minimally invasive. - Message sent for referral. [facility] requesting MRI prior to seeing the patient. [...] [] 1hr GTT (24-28wks): [] Flu Shot (Sep-Dec): [] Tdap (27-36wks): [] Rhogam (if Rh [...] education: completed in all 3 trimesters [] Certified Caregiver: [] Car seat discussed [] PP depression counseling Current Oncology Plans No current plan information found. Past Plans Line Care Plan Name Start Date Discontinue Date Treatment Medications Discontinue Reason Plan Provider IV Maintenance Therapy Plan 03/25/2019 01/06/2021 No medications scheduled. Therapy Complete Venessa Salinas MD Oncology Chemotherapy Treatment Plan Name Start Date Discontinue Date Treatment Medications Discontinue Reason Plan Provider Cycles Pembrolizumab/P ACLItaxel/CARBO platin x 4 cyles Followed By Pembrolizumab/D DAC x 4 cycles Followed by Pembrolizaumb 21 Day Cycles - Breast 03/25/19 20 11/06/2019 CARBOplatin (PARAPLATIN)CARBOpla tin (PARAPLATIN) IVPB in 250 mLcycloPHOSphamide (CYTOXAN) IVPB (vial 20 mg/mL) (J9075)DOXOrubicin (ADRIAMYCIN) 2 mg/mLPACLitaxel (TAXOL)PACLItaxel (TAXOL) IVPB in 250 mLpembrolizumab (KEYTRUDA)pembrolizu mab (KEYTRUDA) IVPB in 100 mL Therapy Complete Gregory Watts MD PhD 8 of 17 cycles started Radiation Treatments * Plan Last Treated On Elapsed Days Fractions Treated Prescribed Fraction Dose Prescribed Total Dose LT BRS BOOST 03/04/2020 51 5 200 cGy 1,000 c Gy LT_Breast_LN 03/04/2020 51 28 180 cGy 5,040 c Gy Reference Point Last Treated On Elapsed Days Session Dose Total Dose [id number] 03/04/2020 51 0 cGy 5,040 cGy RT BRS BOOST 03/04/2020 51 0 cGy 1,000 cGy Lifetime Dose Tracking * Chemical Lifetime Dose Automatic Entry Manual Entr y doxorubicin 240.86 mg/m2 (511.2 mg) 240.86 mg/m2 (511.2 mg) 0 mg/m2 (0 mg) Fluoro Time 0.16 minutes 0.16 minutes 0 minutes cyclophosphamide 2,408.598 mg/m2 (5,112 mg) 2,408.598 mg/m2 (5,112 mg) 0 mg/m2 (0 mg) doxorubicin isotoxic equivalent (Please manually verify calculation) 240.86 mg/m2 (511.2 mg) 240.86 mg/m2 (511.2 mg) 0 mg/m2 (0 mg) Air kerma at the reference point (Ka,r) 1.39 mGy 1.39 mGy 0 mGy DLP 721 mGycm 721 mGycm 0 mGycm Resolved Problems Problem Noted Date Diagnosed Date Resolved Date with inconclusive viability 01/25/2022 01/31/2022 Overview (01/25/2022): Telephone Number Relationship mamelissa Calvo [phone] (home) Home [] PUL Card Given Working Diagnosis: IUP vs SAB Date presented: 01/25/22 Brief HPI: 41 y.o. at approximately 7w2d (LMP= ) presents to ED 01/16 with bleeding, BSUS 01/16 with GS/YS. Ultrasound: BSUS 01/16 with GS/YS. Formal US 01/25 with no evidence of IUP but technically challenging 2/2 large posterior fibroid. 01/25 bHCG 42515, discussed repeating bHCG in 48 hrs, however [...] NA [] Signed out with attending and okay to remove from beta book. Attending Name: Breast pain 12/02/2020 01/31/2022
--- OUTSIDE RECORDS SUMMARY | 2024-03-06 19:46 | XMS_ITS | Clinical Summary ---
Author Organization [facility] Address [address] [place] [address] Care Team Providers Care Resident Medical Officer Name Role Phone No, Physician Primary Care Provider [phone] Taina Cabral MD PhD Unavaila ble Jayla Hernandez MD Unavailable [phone] Allergies No known active allergies Medications vitamin [...] within 12 hours or as directed by . 15 patch 11/26/19 24 Active ondansetron (ZOFRAN) [...] of her symptoms. Will also refer to [facility] for possible lsc MMY Ymtbicy-Bpjuz-Ccqos disease 12/02/2020 Overview (01/31/2022): She reports she [...] 02/26/2019 L breast biopsy IDC high grade ER/IL/HER2 negative, Ki67 90. LN + BRCA neg [...] 03/11/2019 Cancer Staging:Clinical: cT2, cN2, G3, ER-, IL-, HER2- - Signed by Venessa Salinas MD on 03/11/2019 Pathologic stage from 10/20/2019:No Stage Recommended(ypT0, pN0, cM0, ER-, IL-, HER2-) - Signed by Abigail Cárdenas MD [...] would like to have a consultation with [facility] to determine if this procedure could be performed minimally invasive. - Message sent for referral. [facility] requesting MRI prior to [...] [] 1hr GTT (24-28wks): [] Flu Shot (Oct-Jan): [] Tdap (27-36wks): [] Rhogam (if Rh [...] education: completed in all 3 trimesters [] Spanisher: [] Car seat discussed [] PP depression counseling Resolved Problems Problem Noted Date Diagnosed Date Resolved Date with inconclusive viability 01/25/2022 01/31/2022 Overview (01/25/2022): Telephone Number Jeffery Calvo [phone] (home) Home [] PUL Card Given Working Diagnosis: IUP vs SAB Date presented: 01/25/22 Brief HPI: 41 y.o. at approximately 7w2d (LMP= ) presents to ED 01/16 with bleeding, BSUS 01/16 with GS/YS. Ultrasound: BSUS 01/16 with GS/YS. Formal US 01/25 with no evidence of IUP but technically challenging 2/2 large posterior fibroid. 01/25 bHCG 08685, discussed repeating bHCG in 48 hrs, however [...] book. Attending Name: Breast pain 12/02/2020 01/31/2022 Encounters Date Type Department Care Team Description 02/08/2024 5:01 PM ESTHETICIAN FACIALIST - 02/08/2024 9:51 PM [facility] Emergency [facility] Emergency Department [facility] [place] [address] Nausea and vomiting, unspecified vomiting type (Primary Dx); Acute cystitis with hematuria Discharge Disposition: Discharge to home or self care 02/07/2024 5:33 PM ESTHETICIAN FACIALIST - 02/07/2024 7:05 PM [facility] Emergency [facility] Emergency Department [address] [place] [address] Raymon Santana MD Vomiting and diarrhea (Primary Dx) Discharge Disposition: Discharge to home or self care 01/11/2024 2:00 PM ESTHETICIAN FACIALIST Office Visit [facility] [address] [facility] [address] [place] [id number] Malignant neoplasm of female breast, unspecified estrogen receptor status, unspecified laterality, unspecified site of breast (HCC) (Primary Dx); Acute bilateral low back pain without sciatica; Avmhikk-Ydtpg-Yhdoi disease from Last 3 Months Immunizations Name Administration Dates Next Due Influenza, Trivalent, IM (MDV) 12/26/2016 Tdap 10/28/2021,03/10/2011 Surgical History Surgery Date Site/Laterality Comments BREAST BIOPSY 02/26/2019 Left US GUIDED BIOPSY LYMPH NODE SUPERFICIAL LEFT 02/26/2019 N/A BREAST BIOPSY 03/19/2019 Right BREAST CYST EXCISION Medical History Medical History Date Comments Nerve damage Peptic ulceration CMT (Bmaruwu-Jgfkx-Nzlyq disease) Breast cancer (HCC) left breast Insomnia Obesity Depression Anxiety History of chemotherapy Family History Medical History Relation Name Comments Breast cancer Cousin Colon cancer Father Breast cancer Father's Sister 1 Lung cancer Father's Sister 1 Breast cancer Father's Sister 2 Postmenopausal breast cancer Father's Sister 2 Endometrial cancer Neg Hx Ovarian cancer Neg Hx Thyroid cancer Neg Hx Relation Name Status Comments Cousin Father Father's Sister 1 Father's Sister 2 Social History Tobacco Use Types Packs/Day Years [...] on file Legal Sex Female 11:41 AM ESTHETICIAN FACIALIST Gender Identity Not on file Sexual Orientation Not on file Obstetrics History Para Term AB IAB SAB Ectopic Multiple Livin g Live Births 5 3 3 2 3 Date Outcome GA Total Labor Labor/2nd/3rd Weight Sex Type Anes PTL Jody A1 A5 Name Clin Term Term Term AB AB Last Filed Vital Signs Vital Sign Reading Time Taken Comments Blood Pressure 144/91 02/08/2024 9:00 PM ESTHETICIAN FACIALIST Pulse 60 02/08/2024 9:00 PM ESTHETICIAN FACIALIST Temperature 36.9 ??C (98.4 ??F) 02/08/2024 2:39 PM CS T Respiratory Rate 18 02/08/2024 2:39 PM ESTHETICIAN FACIALIST Oxygen Saturation 100% 02/08/2024 9:00 PM ESTHETICIAN FACIALIST Inhaled Oxygen Concentration - - Weight 83.9 kg (185 lb) 02/08/2024 2:39 PM ESTHETICIAN FACIALIST Height 172.7 cm (5' 8 ) 02/08/2024 2:39 PM ESTHETICIAN FACIALIST Body Mass Index 28.13 02/08/2024 2:39 PM ESTHETICIAN FACIALIST Plan of Treatment Health Maintenance Due Date Last Done Comments Depression Screening 1981 Varicella Vaccines (1 of 2 - 13+ 2-dose series) 1994 Hepatitis B Screening 07/08/1999 Regular Well Visit/Exam 18-64 07/08/1999 Breast Cancer Screening-Mammogram 03/02/2021 03/02/2020, 02/26/2019 Cervical Cancer Screening 01/31/2023 01/31/2022 Influenza Vaccine (#1) 2023 12/26/2016 DTaP/Tdap/Td Vaccine (3 - Td or Tdap) 10/29/2031 10/28/2021, 03/10/2011 Hepatitis C Screening Completed 01/31/2022 HPV Vaccines Aged Out No longer eligi ble based on patient's age to complete this topic Pneumococcal vaccine <65 Aged Out No longer eligible based on patient's age to complete this topic Goals Goal Patient Goal Type Associated Problems [...] as needed Medical Devices Explanted Type Area Mechanical Manager Device Identifier Shelf Expiration Date Model / Serial / Lot [employer] [id number] Powerport Clearvue Airguard 8fr 1 Lumen Lightweight Intermediate Latex Free - [id number] Implanted:Qty: 1 on 03/12/2019 by Taina Cabral MD PhD at [facility] Explanted:Qty: 1 on 12/17/2019 at [facility] Right: Chest [employer] 05/05/2020 [id number] / / [id number] Procedures Procedure Name Priority Date/Time Associated Diagnosis Comments POCT HCG, URINE Routine 02/08/2024 8:46 PM ESTHETICIAN FACIALIST URINALYSIS, MICROSCOPIC ONLY STAT 02/08/2024 7:38 PM ESTHETICIAN FACIALIST URINE CULTURE STAT 02/08/2024 7:38 PM ESTHETICIAN FACIALIST URINALYSIS AND REFLEX TO MICROSCOPIC AND CULTURE STAT 02/08/2024 7:38 PM ESTHETICIAN FACIALIST EGFR STAT 02/08/2024 6:00 PM ESTHETICIAN FACIALIST DIFFERENTIAL AUTO STAT 02/08/2024 6:0 0 PM ESTHETICIAN FACIALIST LIPASE STAT 02/08/2024 6:00 PM ESTHETICIAN FACIALIST COMPREHENSIVE METABOLIC PANEL STAT 02/08/2024 6:00 PM ESTHETICIAN FACIALIST CBC WITH AUTO DIFFERENTIAL STAT 02/08/2024 6:00 PM ESTHETICIAN FACIALIST INFLUENZA A/B, RSV, AND COVID-19 PCR Routine 02/08/2024 2:47 PM ESTHETICIAN FACIALIST ECG 12-LEAD STAT 02/07/2024 3:01 PM ESTHETICIAN FACIALIST EGFR STAT 02/07/2024 2:52 PM ESTHETICIAN FACIALIST DIFFERENTIAL AUTO STAT 02/07/2024 2:5 2 PM ESTHETICIAN FACIALIST LIPASE STAT 02/07/2024 2:52 PM ESTHETICIAN FACIALIST COMPREHENSIVE METABOLIC PANEL STAT 02/07/2024 2:52 PM ESTHETICIAN FACIALIST CBC WITH AUTO DIFFERENTIAL STAT 02/07/2024 2:52 PM ESTHETICIAN FACIALIST HEPATITIS C ANTIBODY Routine 01/31/2022 12:56 PM ESTHETICIAN FACIALIST Supervision of high-risk , first trimester PAP AND HIGH RISK HPV, REFLEX TO GENOTYPING Routine 01/31/2022 12:01 PM ESTHETICIAN FACIALIST Supervision of high-risk , first trimester DIAGNOSTIC MAMMOGRAM BILATERAL W JIM Schedule Routine, Read Routine (OP Routine) 03/02/2020 2:31 PM ESTHETICIAN FACIALIST Malignant neoplasm of upper-inner quadrant of left breast in female, estrogen receptor negative (CMS/HCC) from Last 3 Months or Most Recently Relevant to Health Maintenance Results * POCT hCG, urine (02/08/2024 8:46 PM ESTHETICIAN FACIALIST) HCG, ur, POC Negative Negative Lot Number [id number] QC Backgroud Clear Acceptable QC Control Line Acceptable Urine 02/08/2024 8:46 PM ESTHETICIAN FACIALIST [facility] Magda Michel SOCIAL INSURANCE ADVISER POINT OF CARE TEST ORDE ANGELA Final Result * (ABNORMAL) Urinalysis reflex to microscopic and culture Urine (02/08/2024 7:38 PM ESTHETICIAN FACIALIST) Color, ur Yellow Yellow Comment:[facility] : [facility] [address], [place] [address] Clarity, ur Clear Clear [facility] Comment:Testing performed by : [facility] [address], [place] [address] Specific gravity, ur 1.028 1.003 - 1.030 [facility] Comment:Testing performed by : [facility] [address], [place] [address] pH, urine 7.0 [facility] Comment: Interpretive Data ? Urine pH is affected by diet, medications, systemic acid-base disturbances, and renal tubular function. ??pH may affect urinary stone formation. ??For example, urine pH below 6.0 may help reduce the tendency for calcium phosphate stones and pH greater than 6.0 may reduce the tendency for uric acid stone formation. Source: [facility] Current Interpretive Data was last revised on 2017 Testing performed by: [facility], [address] [address] Protein, ur ql Trace Negative [facility] Comment:Testing performed by : [facility], [place] [address] Glucose, ur ql Negative Negative [facility] Comment:Testing performed by : [facility], [place] [address] Ketones, ur 2+(A) Negative [facility] Comment:Testing performed by : [facility], [place] [address] Bilirubin, ur Negative Negative [facility] Comment:Testing performed by : [facility], [place] [address] Blood, ur 2+(A) Negative [facility] Comment:Testing performed by : [facility], [address], [place] [address] Urobilinogen, ur <2.0 <2.0 mg/dL [facility] Comment:Testing performed by : [facility], [place] [address] Nitrite, ur Negative Negative [facility] Comment:Testing performed by : [facility], [place] [address] Leukocyte esterase, ur 2+(A) Negative [facility] Comment:Testing performed by : [facility], [place] [address] UA reflex comment Reflex to microscopic UA will be performed. [facility]ER Comment:Testing performed by : [facility], [place] [address] Urine 02/08/2024 7:38 PM ESTHETICIAN FACIALIST 02/08/2024 7:54 PM ESTHETICIAN FACIALIST Meaghan Michel SOCIAL INSURANCE ADVISER LAB MICROBIOLOGY - GENE [facility] ORDERABLES Final Result [facility] [address] Department [place] [address] * (ABNORMAL) Urinalysis, microscopic only (02/08/2024 7:38 PM ESTHETICIAN FACIALIST) WBC, ur 11-20(A) 0 - 5 /HPF Comment:Testing performed by : [facility] [address], [place] [address] RBC, ur 21-50(A) 0 - 2 /HPF [facility]ER Comment:Testing performed by : [facility], [address], [place] [address] Epithelial cells, squamous, ur 1-5 0 - 5 /HPF [facility] Comment:Testing performed by : [facility], [address], [place], [place] [address] Mucous, ur Present(A) [facility] Comment:Testing performed by : [facility], [place] [address] Culture Reflex Comment Reflex to urine culture will be performed. [facility] Comment:Testing performed by : [facility], [address], [place] [address] Urine 02/08/2024 7:38 PM ESTHETICIAN FACIALIST 02/08/2024 7:54 PM ESTHETICIAN FACIALIST [facility] LAB URINE ORDERABLES Fi nal Result Performing Organization Address [facility] de Phone Number [facility] [address] [facility] [place] [place] [address] * Urine culture Urine (02/08/2024 7:38 PM ESTHETICIAN FACIALIST) Report Final Report: Less than 100,000 colonies/mL (clinically insignificant growth based on current clinical standards) Comment:Testing performed by : [facility], [address] [place]., [address] Organism (CLINICALLY INSIGNIFICANT GROWTH [facility] Urine 02/08/2024 7:38 PM ESTHETICIAN FACIALIST 02/08/2024 11:56 PM ESTHETICIAN FACIALIST Narrative [facility] - 02/10/2024 8:07 AM ESTHETICIAN FACIALIST Urine culture reflexed based upon urinalysis results. Testing performed by [facility] Microbiology Laboratory ([phone]) [facility] SOCIAL INSURANCE ADVISER LAB MICROBIOLOGY - GENE RAL ORDERABLES Final Result Performing Organization Address City/[facility] Co de Phone Number [facility] [address] [facility] [place] [address] * eGFR (02/08/2024 6:00 PM ESTHETICIAN FACIALIST) eGFR >90 >=60 mL/min/1. 73 m2 Comment: [...] was last reviewed 2020. Testing performed by: [facility] [place] [address] Blood 02/08/2024 6:00 PM ESTHETICIAN FACIALIST 02/08/2024 6:12 PM ESTHETICIAN FACIALIST Meaghan Michel SOCIAL INSURANCE ADVISER LAB BLOOD ORDERABLES nal Result [facility] [place] [address] Department [place] [address] * Differential, auto (02/08/2024 6:00 PM ESTHETICIAN FACIALIST) Neutrophil abs 2.0 1.5 - 6.5 K/cumm Comment:Testing performed by : [facility] [place] [address] Imm gran abs 0.0 0.0 - 0.1 K/cumm [facility] Comment:Testing performed by : [facility] [address], [place] [address] Lymphocyte abs 1.1 0.8 - 3.3 K/cumm [facility] Comment:Testing performed by : [place] [address], [place] [address] Monocyte abs 0.6 0.2 - 0.8 K/cumm [facility] Comment:Testing performed by : [facility], [facility] [address], [place] [address] Eosinophil abs 0.0 0.0 - 0.5 K/cumm [facility] Comment:Testing performed by : [facility], [facility] [address], [place] [address] Basophil abs 0.0 0.0 - 0.1 K/cumm [facility] Comment:Testing performed by : [place] [address] [place] [address] Neutrophil pct 53.1 % [facility] Comment: Interpretive Data Percent cell count reference ranges are not reported, since discordance with absolute values may lead to misinterpretation of CBC data. Current Interpretive Data was last revised on 2017. Testing performed by: [address] [place], [place] [address] Imm gran pct 0.3 % [facility] Comment: Interpretive Data Percent cell count reference ranges are not reported, since discordance with absolute values may lead to misinterpretation of CBC data. Current Interpretive Data was last revised on 2017. Testing performed by: [facility], [facility] [place] [address] Lymphocyte pct 29.7 % [facility] Comment: Interpretive Data Percent cell count reference ranges are not reported, since discordance with absolute values may lead to misinterpretation of CBC data. Current Interpretive Data was last revised on 2017. Testing performed by: [place] [address], [place] [address] Monocyte pct 15.8 % [facility] Comment: Interpretive Data Percent cell count reference ranges are not reported, since discordance with absolute values may lead to misinterpretation of CBC data. Current Interpretive Data was last revised on 2017. Testing performed by: [facility], [facility] [address], [place] [address] Eosinophil pct 0.8 % [facility] Comment: Interpretive Data Percent cell count reference ranges are not reported, since discordance with absolute values may lead to misinterpretation of CBC data. Current Interpretive Data was last revised on 2017. Testing performed by: [facility] [address], [place] [address] Basophil pct 0.3 % CERNER Comment: Interpretive Data Percent cell count reference ranges are not reported, since discordance with absolute values may lead to misinterpretation of CBC data. Current Interpretive Data was last revised on 2017. Testing performed by: [facility] [address], [place] [address] Blood 02/08/2024 6:00 PM ESTHETICIAN FACIALIST 02/08/2024 6:12 PM ESTHETICIAN FACIALIST Meaghan Michel SOCIAL INSURANCE ADVISER LAB BLOOD ORDERABLES nal Result [facility] [address] Department [place] [address] * (ABNORMAL) CBC with auto differential (02/08/2024 6:00 PM ESTHETICIAN FACIALIST) WBC 3.7(L) 3.8 - 9.9 K/cumm Comment:Testing performed by : [facility] [address], [place] [address] Hgb 13.0 11.9 - 15.5 g/dL [facility] Comment:Testing performed by : [facility] [address], [place] [address] Hct 38.9 35.6 - 45.5 % C[facility]ER Comment:Testing performed by : [facility] [address], [place] [address] Plt 280 150 - 400 K/cumm [facility] Comment:Testing performed by : [facility] [address], [place] [address] MPV 9.0(L) 9.1 - 12.3 fL [facility] Comment:Testing performed by : [facility] [address], [place] [address] RBC 4.76 3.90 - 5.20 M/cumm [facility] Comment:Testing performed by : [facility] [address], [place] [address] MCV 81.7 81.3 - 96.4 fL [facility] Comment:Testing performed by : [facility] [address], [place] [address] MCH 27.3 27.1 - 33.3 pg [facility] Comment:Testing performed by : [facility], [address] [place] [address] MCHC 33.4 32.3 - 35.7 g/dL CERDELIA CH Comment:Testing performed by : [facility], [facility] [place] [address] RDW CV 14.2 11.1 - 14.9 % [facility] CH Comment:Testing performed by : [facility], [facility] [place] [address] RDW SD 41.8 35.7 - 48.1 fL CERDELIA CH Comment:Testing performed by : [facility], [facility] [place] [address] NRBC abs 0.00 0.00 - 0.01 K/cumm [facility] Comment:Testing performed by : [facility], [facility] [place] [address] Blood 02/08/2024 6:00 PM ESTHETICIAN FACIALIST 02/08/2024 6:12 PM ESTHETICIAN FACIALIST [facility] SOCIAL INSURANCE ADVISER LAB BLOOD ORDERABLES Fi nal Result Performing Organization Address City/[facility]/ZIP Co de Phone Number [facility] [place] [address] [facility] [place] [address] * Lipase (02/08/2024 6:00 PM ESTHETICIAN FACIALIST) Pathologist [facility] Lipase 25 10 - 99 Units/L Comment:Testing performed by : [facility], [facility] [place] [address] Blood 02/08/2024 6:00 PM ESTHETICIAN FACIALIST 02/08/2024 6:12 PM ESTHETICIAN FACIALIST [facility] SOCIAL INSURANCE ADVISER LAB BLOOD ORDERABLES Fi nal Result Performing Organization Address City/[facility]/ZIP Co de Phone Number [facility] URB[place] [address] [facility] [place] [address] * (ABNORMAL) Comprehensive metabolic panel (02/08/2024 6:00 PM ESTHETICIAN FACIALIST) Sodium 134(L) 135 - 145 mmol/L Comment:Testing performed by : [facility], [facility] [place] [address] Potassium, pl 3.9 3.3 - 4.9 mmol/L [facility] Comment:Testing performed by : [facility] [address] Chloride 99 97 - 110 mmol/L [facility] Comment:Testing performed by : [facility] [place] [address] CO2 22 22 - 32 mmol/L [facility] CH Comment:Testing performed by : [facility] [place] [address] [address] Anion gap 13 2 - 15 mmol/L [facility] CH Comment:Testing performed by : [facility] [place] [address] BUN 9 6 - 25 mg/dL [facility] Comment:Testing performed by : [facility] [place] [address] Creatinine 0.42(L) 0.60 - 1.10 mg/dL [facility] CH Comment:Testing performed by : [facility] [place] [address] Glucose 95 70 - 199 mg/dL [facility] CH Comment: Interpretive Data Fasting glucose >/= 126 [...] was last revised 2022. Testing performed by: [facility] [place] [address] Calcium 9.2 8.5 - 10.3 mg/dL [facility] Comment:Testing performed by : [facility] [place] [address] Bilirubin, total 0.4 0.1 - 1.2 mg/dL [facility] CH Comment:Testing performed by : [facility] [place] [address] Protein, pl 7.9 6.5 - 8.5 g/dL [facility] CH Comment:Testing performed by : [facility], [place] [address] Albumin 4.2 3.5 - 5.0 g/dL [facility] Comment:Testing performed by : [facility] [address], [place] [address] Alk phos 57 40 - 130 Units/L CERDELIA Comment:Testing performed by : [facility] [address], [place] [address] ALT 9 7 - 45 Units/L [facility] Comment:Testing performed by : [facility] [address], [place] [address] AST 14 10 - 45 Units/L [facility] Comment:Testing performed by : [facility], [place] [address] Blood 02/08/2024 6:00 PM ESTHETICIAN FACIALIST 02/08/2024 6:12 PM ESTHETICIAN FACIALIST Meaghan Michel NP LAB BLOOD ORDERABLES nal Result Performing Organization Address City/State/[facility] Co az Phone Number [facility] [address] Department [place] [address] * Influenza A/B, RSV, and COVID-19 PCR Nasopharyngeal (02/08/2024 2:47 PM ESTHETICIAN FACIALIST) COVID-19 RNA Negative Negative Comment:Testing performed by : [facility] [address], [place] [address] Influenza A RNA Negative Negative [facility] Comment:Testing performed by : [facility] [address], [place] [address] Influenza B RNA Negative Negative [facility] Comment:Testing performed by : [facility], [place] [address] RSV RNA Negative Negative [facility] Comment: Interpretive data: Testing performed by [facility]. This test is performed using the [employer] Xpert Xpress CoV-2/Flu/RSV plus assay. This is a multiplex, real- time reverse transcriptase PCR assay intended for the qualitative detection of nucleic acid from SARS-CoV-2, influenza A, influenza B, and respiratory syncytial virus. This assay has been cleared by the [place] Food and Drug administration. The performance characteristics have been verified by the [facility]. ??Results must be considered in the clinical context, and a negative result does not rule out infection. Interpretive Data last revised 2023 Testing performed by: [facility], [address] [place] [address], [place] [address] Nasopharyngeal 02/08/2024 2: 47 PM ESTHETICIAN FACIALIST 02/08/2024 2:50 PM ESTHETICIAN FACIALIST Narrative [facility] - 02/08/2024 3:27 PM ESTHETICIAN FACIALIST Is the Patient experiencing symptoms consistent with COVID?->Yes us Christina Redd MD LAB MICROBIOLOGY - GEN ERAL ORDERABLES Final Result Performing Organization Address City/[facility]/ZIP Co de Phone Number [facility] [address] Department [place] [address] * ECG 12-LEAD (02/07/2024 3:01 PM ESTHETICIAN FACIALIST) Narrative [facility] - 02/07/2024 3:01 PM ESTHETICIAN FACIALIST Abdi Reed MD ? 02/07/2024 ??3:01 PM ECG 12 lead Date/Time: 02/07/2024 3:01 PM Performed by: Abdi Reed MD Authorized by: Brian Brasher MD ?? Comments: ?? Sinus bradycardia, rate 59, borderline left axis deviation. ??IL, QRS, QTC intervals are not prolonged. ??No acute T-wave or ST changes when compared to prior EKG from 02/26/2019 Procedure Note Abdi Reed MD - 02/07/2024 3:01 PM CST Procedure ECG 12 lead Date/Time: 02/07/2024 3:01 PM Performed by: Abdi Reed MD Authorized by: Brian Brasher MD Comments: Sinus bradycardia, rate 59, borderline left axis deviation. IL, QRS,QTC intervals are not prolonged. No acute T-wave or ST changes whencompared to prior EKG from 02/26/2019 Abdi Reed MD 02/07/24 1501 us Ramyon Santana MD ECG ORDERABLES Final Res ult [facility] * eGFR (02/07/2024 2:52 PM ESTHETICIAN FACIALIST) eGFR >90 >=60 mL/min/1. 73 m2 Comment: [...] last reviewed 2020. Blood 02/07/2024 2:52 PM ESTHETICIAN FACIALIST 02/07/2024 3:22 PM ESTHETICIAN FACIALIST us Yumiko Brasher MD LAB BLOOD ORDERABLES Final Result [facility] [place] [address] * Differential, auto (02/07/2024 2:52 PM ESTHETICIAN FACIALIST) Neutrophil abs 1.8 1.5 - 6.5 K/cumm Imm gran abs 0.0 0.0 - 0.1 K/cumm [facility] Lymphocyte abs 1.0 0.8 - 3.3 K/cumm [facility] Monocyte abs 0.5 0.2 - 0.8 K/cumm [facility] Eosinophil abs 0.0 0.0 - 0.5 K/cumm [facility] Basophil abs 0.0 0.0 - 0.1 K/cumm [facility] Neutrophil pct 54.3 % [facility] Comment: Interpretive Data Percent cell count reference ranges are not reported, since discordance with absolute values may lead to misinterpretation of CBC data. Current Interpretive Data was last revised on 2017. Imm gran pct 0.6 % [facility] Comment: Interpretive Data Percent cell count reference ranges are not reported, since discordance with absolute values may lead to misinterpretation of CBC data. Current Interpretive Data was last revised on 2017. Lymphocyte pct 29.0 % [facility] Comment: Interpretive Data Percent cell count reference ranges are not reported, since discordance with absolute values may lead to misinterpretation of CBC data. Current Interpretive Data was last revised on 2017. Monocyte pct 14.6 % [facility] Comment: Interpretive Data Percent cell count reference ranges are not reported, since discordance with absolute values may lead to misinterpretation of CBC data. Current Interpretive Data was last revised on 2017. Eosinophil pct 1.2 % [facility] Comment: Interpretive Data Percent cell count reference ranges are not reported, since discordance with absolute values may lead to misinterpretation of CBC data. Current Interpretive Data was last revised on 2017. Basophil pct 0.3 % [facility] Comment: Interpretive Data Percent cell count reference ranges are not reported, since discordance with absolute values may lead to misinterpretation of CBC data. Current Interpretive Data was last revised on 2017. Blood 02/07/2024 2:52 PM ESTHETICIAN FACIALIST 02/07/2024 3:21 PM ESTHETICIAN FACIALIST us Yumiko Brasher MD LAB BLOOD ORDERABLES Final Result [facility] [place] [address] * (ABNORMAL) CBC with auto differential (02/07/2024 2:52 PM ESTHETICIAN FACIALIST) [facility] WBC 3.3(L) 3.8 - 9.9 K/cumm Hgb 13.2 11.9 - 15.5 g/dL [facility] Hct 40.2 35.6 - 45.5 % [facility] Plt 283 150 - 400 K/cumm [facility] MPV 9.6 9.1 - 12.3 fL [facility] RBC 4.91 3.90 - 5.20 M/cumm [facility] MCV 81.9 81.3 - 96.4 fL [facility] MCH 26.9(L) 27.1 - 33.3 pg [facility] MCHC 32.8 32.3 - 35.7 g/dL [facility] RDW CV 14.4 11.1 - 14.9 % [facility] RDW SD 42.6 35.7 - 48.1 fL [facility] NRBC abs 0.00 0.00 - 0.01 K/cumm [facility] Blood (Blood, Venous) 02/07/2024 2:52 PM ESTHETICIAN FACIALIST 02/07/2024 3:21 PM ESTHETICIAN FACIALIST Yumiko Brasher MD LAB BLOOD ORDERABLES Final Result Performing Organization Address [facility] de Phone Number [facility] Department [place] [place] [address] * Lipase (02/07/2024 2:52 PM ESTHETICIAN FACIALIST) [facility] Lipase 18 10 - 99 Units/L Blood (Blood, Venous) 02/07/2024 2:52 PM ESTHETICIAN FACIALIST 02/07/2024 3:22 PM ESTHETICIAN FACIALIST Yumiko Brasher MD LAB BLOOD ORDERABLES Final Result Performing Organization Address [facility] Co de Phone Number [facility] Department [place] [address] * (ABNORMAL) Comprehensive metabolic panel (02/07/2024 2:52 PM ESTHETICIAN FACIALIST) Pathologist [facility] Sodium 138 135 - 145 mmol/L Potassium, pl 4.2 3.3 - 4.9 mmol/L [facility] Chloride 101 97 - 110 mmol/L [facility] CO2 23 22 - 32 mmol/L [facility] Anion gap 14 2 - 15 mmol/L [facility] BUN 7 6 - 25 mg/dL [facility] Creatinine 0.50(L) 0.60 - 1.10 mg/dL [facility] Glucose 91 70 - 199 mg/dL [facility] Comment: Interpretive Data Fasting glucose >/= [...] 2022. Calcium 9.5 8.5 - 10.3 mg/dL [facility] Bilirubin, total 0.3 0.1 - 1.2 mg/dL [facility] Protein, pl 7.9 6.5 - 8.5 g/dL [facility] Albumin 4.2 3.5 - 5.0 g/dL [facility] Alk phos 62 40 - 130 Units/L [facility] ALT 13 7 - 45 Units/L [facility] AST 20 10 - 45 Units/L [facility] Blood 02/07/2024 2:52 PM ESTHETICIAN FACIALIST 02/07/2024 3:22 PM ESTHETICIAN FACIALIST us Yumiko Brasher MD LAB BLOOD ORDERABLES Final Result [facility] [place] [address] * Hepatitis C antibody (01/31/2022 12:56 PM ESTHETICIAN FACIALIST) Pathologist [facility] Hep C Ab Nonreactive Nonreactive [facility] Comment:Antibodies to HCV no t detected. Does NOT exclude the possibility of recent exposure to HCV. Current interpretive data was last revised on 21 Blood 01/31/2022 12:5 6 PM ESTHETICIAN FACIALIST 01/31/2022 1:29 PM ESTHETICIAN FACIALIST us Gladis Reyes MD LAB MICROBIOLOGY - GENERAL ORDERABLES Final Result [facility] [place] [address] * Pap and High Risk HPV, reflex to Genotyping (01/31/2022 12:01 PM ESTHETICIAN FACIALIST) Thin prep (Pap test) 01/31/2022 12:01 PM ESTHETICIAN FACIALIST 01/31/2022 1:36 PM ESTHETICIAN FACIALIST Narrative PATHOLOGY [facility] - 02/07/2022 12:18 PM ESTHETICIAN FACIALIST EPIC results best viewed via link to PDF [facility] [place] [address] Note to Patients: This report may contain [...] ??F : ??1980 (Age: 41) Address: ??[address] [place], [place] ??[address] Hospital #: ??[id number] Service: ??UNKNOWN Location: ?? Patient Type: ??[facility] SPECIMEN Taken: ??01/31/2022 Received: ??01/31/2022 Accessioned: ??01/31/2022 [...] 69. ??This HPV test was performed at [facility] in [place], [place] utilizing the Gen-Probe Aptima assay. samantha/02/07/2022 12:18 RENETTA Martel(ASCP) Report Electronically Reviewed and [...] requisition. The HPV test was performed by [facility], [address] [place] [address]. Report Images and scanned documents, if included only viewable in PDF version The performance characteristics of some immunohistochemical stains, in-situ hybridization and fluorescence in-situ hybridization tests and immunophenotyping by flow cytometry cited in this report (if any) were determined by the Surgical Pathology Department at [facility] as part of an ongoing quality assurance monitor body program and in compliance with federally mandated [...] determined by the Surgical Pathology Department of [facility]. ??It has not been cleared or approved by the U. S. Food and Drug Administration. Gladis Reyes MD LAB CYTOLOGY ORDERABLES Fi nal Result Performing Organization Address City/State/[facility] Co de Phone Number PATHOLOGY [facility] 3rd Floor [place], [place] [phone] * Diagnostic Mammogram Bilateral W Jim (03/02/2020 2:31 PM ESTHETICIAN FACIALIST) Anatomical Region Laterality Modality Breast Bilateral Mammography 03/02/2020 2:52 PM ESTHETICIAN FACIALIST Impressions 03/02/2020 2:58 PM ESTHETICIAN FACIALIST No evidence of malignancy in either breast. OVERALL FINAL ASSESSMENT: BI-RADS Category 2: Benign. Annual diagnostic mammography is recommended. Electronically signed by: Laura Duke M.D. Narrative 03/02/2020 2:58 PM ESTHETICIAN FACIALIST EXAMINATION: BILATERAL DIGITAL DIAGNOSTIC MAMMOGRAM INCLUDING CAD [...] Most Recently Relevant to Health Maintenance [place] [employer] INCLUDE 234 BEDS AT THE [facility] DIVISION [facility] Care Teams Resident Medical Officer Relationship Specialty Start Date End Date No, Physician PCP - General 03/03/19 Taina Cabral MD PhD Surgeon Surgical Oncology 01/16/20 Jayla Hernandez MD [address] [place] [address] Radiation Oncologist Radiation Oncology 02/15/21
--- OUTSIDE RECORDS SUMMARY | 2024-03-06 19:46 | XMS_ITS | Clinical Summary ---
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 Gender Identity Not on file Sexual Orientation Not on file Plan of Treatment Health Maintenance Due Date Last Done Comments DTAP/TDAP/TD VACCINES (1 - Tdap) 2000 HEPATITIS B VACCINES (1 of 3 - 19+ 3-dose series) 2000 CERVICAL CANCER SCREENING 07/08/2011 BREAST CANCER SCREENING 2021 INFLUENZA VACCINE (#1) 2023 HPV VACCINES Aged Out No longer eligi ble based on patient's age to complete this topic PNEUMOCOCCAL VACCINE 0-64 YEARS Aged Out No longer eligible based on patient's age to complete this topic Insurance [facility] MEDICAID * Guarantor: JULIETTE AC[employer]-O[employer] [facility] (OM) Account Type Relation to Patient Date of Phone Billing Address Corporate Other [address] [address] [address]
== END 2024-03-06 19:47 | disposition home or self-care (01) ==
LOC: ANHED 19:44
PROVIDERS: Emergency Provider Physician Assistant
DX: I10 Essential (primary) hypertension (principal)
CPT/HCPCS: 70450; 99284